=== PATIENT | female | born 1970 | race Caucasian/White ===

== ENCOUNTER 2024-01-01 22:46 | Emergency (ER) | payer SELFPAY ==
[2024-01-01 22:53] VITALS: BP 155/99; PULSE 73; RESP 16; TEMP 36.4; O2SAT 98; BMI 35.9
[2024-01-01 23:37] LABS: Basophils # 0.1 10^3/uL (0.0-0.1); Basophils % 0.8 %; Eosinophils # 0.2 10^3/uL (0.0-0.8); Eosinophils % 1.8 %; Lymphocytes # 2.9 10^3/uL (0.8-4.8); Lymphocytes % 34.4 %; Mean Corpuscular Hemoglobin 28.7 pg (27-33); Mean Corpuscular Volume 89.4 fl (85-98); Mean Platelet Volume 10.1 fL (7.4-10.4); Monocytes # 0.5 10^3/uL (0.2-0.9); Monocytes % 5.5 %; Neutrophils # 4.75 10^3/uL (1.8-7.7); Neutrophils % 57.1 %; Nucleated Red Blood Cells % 0 %; Platelet Count 284 10^3/cmm (157-399); Red Blood Count 4.92 10^6/uL (3.85-5.65); Red Cell Distribution Width 13.6 % (12.1-15.1); White Blood Count 8.32 10^3/uL (3.29-11.43)
[2024-01-01 23:53] LABS: Alanine Aminotransferase 41 U/L (0-33); Albumin Level 4.2 g/dL (3.5-5.2); Alkaline Phosphatase 61 U/L (35-105); Aspartate Amino Transferase 28 U/L (0-32); Blood Urea Nitrogen 7 mg/dL (6-20); Calcium 8.9 mg/dL (8.5-10.5); Carbon Dioxide 24 mmol/L (22-29); Chloride 104 mmol/L (98-107); Glomerular Filtration Rate 104.6 mL/min (90-130); Glucose 138 mg/dL (65-115); Osmolality Calculated 288 mOsm/kg (285-295); Sodium 139 mmol/L (136-145); Total Bilirubin 0.4 mg/dL (0.15-1.2); Total Protein 7.2 g/dL (6.6-8.7)
--- NOTE | 2024-01-02 00:07 | CTR_ITS ---
PROCEDURE INFORMATION: Exam: CT Head Without Contrast Exam date and time: 01/02/2024 12:23 AM Age: 53 years old Clinical indication: Numbness / parasthesia; Patient HX: General weakness with bilateral hand numbness. TECHNIQUE: Imaging protocol: Computed tomography of the head without contrast. Radiation optimization: All CT scans at this facility use at least one of these dose optimization techniques: automated exposure control; mA and/or kV adjustment per patient size (includes targeted exams where dose is matched to clinical indication); or iterative reconstruction. COMPARISON: No relevant prior studies available. RADIATION DOSE METRICS: Total DLP (mGy-cm): 1121.28 FINDINGS: Brain: Normal. No hemorrhage. Unremarkable white matter. No mass effect. Cerebral ventricles: No ventriculomegaly. Paranasal sinuses: Visualized sinuses are unremarkable. No fluid levels. Mastoid air cells: Visualized mastoid air cells are well aerated. Bones: Unremarkable. No acute fracture. Soft tissues: Unremarkable. CT/CT head wo con* [id number] IMPRESSION: No acute intracranial abnormality.
--- NOTE | 2024-01-02 00:30 | ED_ITS ---
HPI - Headache 2 General: Chief Complaint: Headache Stated Complaint: dehydration, numb hands Time Seen by Provider: 01/01/24 22:48 Source: patient Mode of arrival: ambulatory Limitations: no limitations History of Present Illness: 53-year-old female states she had felt l luann she is having pain in his neck couple hours ago she states she had started to feel shaky is having numbness in her hands and numbness around her mouth states she had a mild headache as well. Denies any chest pains. States over the last hour her symptoms resolved she has a minor headache currently. Denies any vomiting or diarrhea Associated symptoms: Deny chest pain, fever(s), nausea, rash or vomiting Review of Systems 2 Const: Denies: fever(s), chills, body aches or change in appetite Eyes: Denies: blurry vision ENMT: Denies: throat pain or dental pain Card: Denies: chest pain Resp: Denies: dyspnea GI: Denies: abdominal pain, nausea, vomiting or diarrhea : Denies: dysuria Musc: Denies: neck pain or back pain Skin/Breast: Denies: rash Neuro: Reports: headache(s) and numbness in extremities Psych: Denies: depression Physical Exam 2 Const: COMMON NORMALS: no acute distress, patient oriented x3 and healthy appearing HENMT: COMMON NORMALS: normocephalic and atraumatic HEAD & SCALP: n ormocephalic and atraumatic Eye: COMMON NORMALS: Equal, round and reactive pupils present and EOMs intact bilaterally PUPIL: Yes Equal, round and reactive pupils present Neck/C-Spine: COMMON NORMALS: full ROM and supple Chest: COMMONS NORMALS: normal inspection of the chest and normal palpation of entire chest wall Resp: COMMON NORMALS: normal respiratory effort, No retractions, No use of accessory muscles and clear to auscultation bilaterally AUSCULTATION: clear to auscultation bilaterally Cardio: COMMON NORMALS: regular rate, regular rhythm and No murmurs present (Cardio) RATE: regular rate RHYTHM: regular rhythm GI: COMMON NORMALS: Normal to inspection, nondistended, normoactive bowel sounds present, Soft to palpation, non-tender and no masses PALPATION: Yes Soft to palpation Extremity: COMMON NORMALS: normal to inspection and full ROM Neuro: COMMON NORMALS: patient oriented x3, moves all extremities and no focal motor deficits Psych: COMMON NORMALS: mental status grossly normal, Normal thought process present and cooperative THOUGHT PROCESS: Normal thought process present Skin: COMMON NORMALS: no rashes or lesions noted and no wounds GENERAL SKIN EXAM: no rashes or lesions noted Course 2 Vital Signs: Vital signs: Vital Signs Temperature 97.5 F L 01/01/24 22:53 Pulse Rate 70 01/02/24 00:58 Respiratory Rate 16 01/01/24 22:53 Blood Pressure 154/100 01/02/24 00:58 Pulse Oximetry 94 01/02/24 00:58 Oxygen Delivery Me thod Room Air 01/02/24 00:58 MDM - Headache Medical Decision Making Patient presents for paresthesias with mild headaches likely anxiety related her symptoms are resolved here NIH is [address] is normal she has no signs of stroke she stable for discharge follow-up with PCP return if worsening Medical Records I reviewed the patient's medical records. Lab Data I reviewed the patient's lab results. 01/01/24 23:33 01/01/24 23:[address] 01/02/24 00:07 IMPRESSION: No acute intracranial abnormality. Laboratory Results WBC 8.32 10^3/uL (3.29-11.43) 01/01/24 23:33 RBC 4.92 10^6/uL (3.85-5.65) 01/01/24 23:33 Hgb 14.10 g/dL (11.27-16.99) 01/01/24 23:33 Hct 44.0 % (36-47) 01/01/24 23:33 MCV 89.4 fl (85-98) 01/01/24 23:33 MCH 28.7 pg (27-33) 01/01/24 23:33 MCHC 32.0 g/dL (30-55) 01/01/24 23:33 RDW 13.6 % (12.1-15.1) 01/01/24 23:33 Plt Count 284 10^3/cmm (157-399) 01/01/24 23:33 MPV 10.1 fL (7.4-10.4) 01/01/24 23:33 Neut % (Auto) 57.1 % 01/01/24 23:33 Lymph % (Auto) 34.4 % 01/01/24 23:33 [place] % (Auto) 5.5 % 01/01/24 23:33 Eos % (Auto) 1.8 % 01/01/24 23:33 Baso % (Auto) 0.8 % 01/01/24 23:33 Neut # (Auto) 4.75 10^3/uL (1.8-7.7) 01/01/24 23:33 Lymph # (Auto) 2.9 10^3/uL (0.8-4.8) 01/01/24 23:33 [place] # (Auto) 0.5 10^3/uL (0.2-0.9) 01/01/24 23:33 Eos # (Auto) 0.2 10^3/uL (0.0-0.8) 01/01/24 23:33 Baso # (Auto) 0.1 10^3/uL (0.0-0.1) 01/01/24 23:33 Nucleated RBC % (auto) 0 % 01/01/24 23:33 Nucleated RBCs # 0.0 /100WBC 01/01/24 23:33 Sodium 139 mmol/L (136-145) 01/01/24 23:33 Potassium 4.0 mmol/L (3.5-5.1) 01/01/24 23:33 Chloride 104 mmol/L (98-107) 01/01/24 23:33 Carbon Dioxide 24 mmol/L (22-29) 01/01/24 23:33 Anion Gap 15.0 (5-19) 01/01/24 23:33 BUN 7 mg/dL (6-20) 01/01/24 23:33 Creatinine 0.6 mg/dL (0.5-0.9) 01/01/24 23:33 GFR Calculation 104.6 mL/min (90-130) 01/01/24 23:33 Glucose 138 mg/dL (65-115) H 01/01/24 23:33 Calculated Osmolality 288 mOsm/kg (285-295) 01/01/24 23:33 Calcium 8.9 mg/dL (8.5-10.5) 01/01/24 23:33 Total Bilirubin 0.4 mg/dL (0.15-1.2) 01/01/24 23:33 AST 28 U/L (0-32) 06/07/24 23:33 ALT 41 U/L (0-33) H 01/01/24 23:33 Alkaline Phosphatase 61 U/L (35-105) 01/01/24 23:33 Total Protein 7.2 g/dL (6.6-8.7) 01/01/24 23:33 Albumin 4.2 g/dL (3.5-5.2) 01/01/24 23:33 Globulin 3.0 g/dL (1.3-4.6) 01/01/24 23:33 No radiology studies performed this visit Discharge Plan Discharge Patient Disposition: Home Clinical Impression: Headache, Paresthesia Condition: Stable Discharge Orders: Discharge ED (Routine); Ordered 01/02/24 Ordered By: Vladimir Bay Discharge Diet: Advance as tolerated Discharge Activity: Resume usual activity Patient Instructions: Paresthesia (ED), General Headache (ED) Coding Level of Care Code ED Specimen Technician for Toyin Brenner NIH stroke score NIHSS Level Of Consciousness - 1a: 0 Level Of Consciousness Questions - 1b: Both Correct Level Of Consciousness Commands - 1c: Both Correct Best Gaze - 2: Normal Visual Roy - 3: No Visual Loss Facial Palsy - 4: Normal Motor Arm Right - 5: No Drift Motor Arm Left - 5: No Drift Motor Leg Right - 6: No Drift Motor Leg Left - 6: No Drift Limb Ataxia - 7: Absent Sensory - 8: Normal Best Language - 9: No Aphasia Dysarthia - 10: Normal Extinction And Inattention - 11: 0 Score Total Score: 0
[2024-01-02 00:58] VITALS: BP 154/100; PULSE 70; O2SAT 94
[2024-01-02 01:35] VITALS: BP 142/89; PULSE 64; O2SAT 99
[2024-01-02 01:41] VITALS: BP 142/89; PULSE 64; O2SAT 99
== END 2024-01-02 01:41 | disposition home or self-care (01) ==
PROVIDERS: Emergency Provider Emergency Medicine
DX: R51.9 Headache, unspecified (principal); R20.2 Paresthesia of skin
CPT/HCPCS: 36415; 70450; 80053; 85025; 99284